=== PATIENT | male | born 1945 | race Caucasian/White ===

== ENCOUNTER 2023-09-07 07:50 | Observation (INO) | payer MEDICARE, MEDICAID ==
[~2023-09-07] VITALS: Ht 177.8 cm; Wt 86.6 kg
[2023-09-07] MEDS ORDERED: BISOPROLOL (08:04)
[2023-09-07] MEDS ORDERED: LISI5TAB11 PO (08:04)
[2023-09-07] MEDS ORDERED: vitaminD (08:04)
[2023-09-07] MEDS ORDERED: PRAS10TA2 PO (08:04)
[2023-09-07] MEDS ORDERED: GLIP10TA PO (08:04)
[2023-09-07] MEDS ORDERED: ELIQ5TAB PO (08:04)
[2023-09-07] MEDS ORDERED: URSO300C3 PO (08:09)
[2023-09-07 08:46] LABS: BASO # 0.1 10^3/uL (0.0-0.2); BASO % 0.7 % (0.0-1.0); EOS # 0.2 10^3/uL (0.0-0.5); EOS % 2.1 % (0.0-3.0); HEMATOCRIT 43.8 % (42.0-52.0); HEMOGLOBIN 14.4 g/dl (13.5-17.5); LYMPH % 13.3 % (24.0-44.0); MEAN CORPUSCULAR HEMOGLOBIN 30.8 pg (27.0-33.0); MEAN CORPUSCULAR HGB CONC 32.9 g/dl (32.0-36.5); MEAN CORPUSCULAR VOLUME 93.6 fl (80.0-96.0); MONO # 0.4 10^3/uL (0.0-0.8); MONO % 5.3 % (2.0-8.0); NEUTROPHILS % 78.2 % (36.0-66.0); PLATELET COUNT, AUTOMATED 168 10^3/uL (150-450); RED BLOOD COUNT 4.68 10^6/uL (4.30-6.10); WHITE BLOOD COUNT 7.6 10^3/uL (4.0-10.0)
[2023-09-07 09:08] LABS: LIPASE 24 U/L (12-53)
[2023-09-07 09:11] LABS: ALBUMIN 3.7 G/DL (3.2-5.2); ALKALINE PHOSPHATASE 120 U/L (46-116); ALT/SGPT 16 U/L (7.0-40); AST/SGOT 19 U/L (<34); BILIRUBIN,DIRECT 0.4 MG/DL (<0.4); BLOOD UREA NITROGEN 25 MG/DL (9-23); CALCIUM LEVEL 9.7 MG/DL (8.3-10.6); CARBON DIOXIDE LEVEL 26 MMOL/L (20-31); CHLORIDE LEVEL 103 MMOL/L (98-107); GLOMERULAR FILTRATION RATE > 60.0 (>35); GLUCOSE, FASTING 214 MG/DL (74-106); SODIUM LEVEL 139 MMOL/L (136-145); TOTAL PROTEIN 6.9 G/DL (5.7-8.2)
[2023-09-07 09:17] LABS: RSV AMPLIFICATION NEGATIVE (NEGATIVE)
[2023-09-07] MEDS ORDERED: ONDANSETRON 4MG 2ML VIAL IV ONE (09:20)
[2023-09-07] MEDS: fentaNYL 100 MCG/2 ML INJECTION IV PRN ×2 (09:28→10:11)
[2023-09-07] MEDS ORDERED: MORPHINE 4 MG/ML 1ML VIAL IV PRN (11:25)
[2023-09-07] MEDS ORDERED: MED REC IN PROGRESS XX SCH (11:30)
[2023-09-07] MEDS ORDERED: HYDROMORPHONE HCL 0.5 MG/ 0.5 ML SYRINGE IV PRN ×2 (11:35→13:40)
[2023-09-07] MEDS ORDERED: LR 1,000 ML IV SCH (12:00)
[2023-09-07] MEDS ORDERED: OLOP5DRO17 TOP (12:05)
[2023-09-07] MEDS ORDERED: SIMV-254 PO (12:05)
[2023-09-07] MEDS ORDERED: OMEP-173 PO (12:05)
[2023-09-07] MEDS ORDERED: BISO10TA14 PO (12:05)
[2023-09-07] MEDS ORDERED: VITA200012 PO (12:05)
[2023-09-07] MEDS: PIPERACILLIN/TAZOBACTAM SOD 4.5 GM in D5W MINI-BAG PLUS 50 ML IV SCH ×3 (12:12→23:22)
[2023-09-07] MEDS ORDERED: HOME MED LIST COMPLETE! XX SCH (12:15)
[2023-09-07 13:13] LABS: PROCALCITONIN <0.04 ng/ml
[2023-09-07 13:20] VITALS: BP 145/78; TEMP 97.7; O2SAT 98
[2023-09-07] MEDS ORDERED: ONDANSETRON 4MG 2ML VIAL IV PRN (13:40)
[2023-09-07 16:00] VITALS: BP 173/78; TEMP 98; O2SAT 94
[2023-09-07] MEDS: bisoproloL fumarate 10 MG TAB PO SCH (16:03)
[2023-09-07] MEDS: OMEPRAZOLE 20MG CAP PO SCH (16:03)
[2023-09-07] MEDS ORDERED: ACETAMINOPHEN *IV* 1,000 MG in IV 1 EA IV ONE (16:30)
[2023-09-07 18:00] VITALS: BP 162/74; O2SAT 96
[2023-09-07] MEDS: PRASUGREL 10 MG XX SCH (18:12)
[2023-09-07] MEDS ORDERED: NS 1,000 ML IV SCH (19:00)
[2023-09-07 20:00] VITALS: BP 140/63; TEMP 97.7; O2SAT 96
[2023-09-07 20:40] VITALS: BP 140/63
[2023-09-07] MEDS: ursodioL 300MG CAP PO SCH (20:41)
[2023-09-07] MEDS ORDERED: SIMVASTATIN 40 MG TAB PO SCH (21:00)
[2023-09-08] VITALS: BP 112/59; TEMP 98.7; O2SAT 96
[2023-09-08 04:00] VITALS: BP 124/58; TEMP 97.8; O2SAT 96
[2023-09-08 04:46] LABS: HEMATOCRIT 38.4 % (42.0-52.0); HEMOGLOBIN 12.8 g/dl (13.5-17.5); MEAN CORPUSCULAR HEMOGLOBIN 30.8 pg (27.0-33.0); MEAN CORPUSCULAR HGB CONC 33.3 g/dl (32.0-36.5); MEAN CORPUSCULAR VOLUME 92.5 fl (80.0-96.0); PLATELET COUNT, AUTOMATED 152 10^3/uL (150-450); RED BLOOD COUNT 4.15 10^6/uL (4.30-6.10); WHITE BLOOD COUNT 6.8 10^3/uL (4.0-10.0)
[2023-09-08] MEDS: PIPERACILLIN/TAZOBACTAM SOD 4.5 GM in D5W MINI-BAG PLUS 50 ML IV SCH ×2 (05:08→11:18)
[2023-09-08 05:20] LABS: ALBUMIN 2.9 G/DL (3.2-5.2); ALKALINE PHOSPHATASE 95 U/L (46-116); ALT/SGPT 14 U/L (7.0-40); AST/SGOT 15 U/L (<34); BILIRUBIN,DIRECT 0.7 MG/DL (<0.4); BILIRUBIN,TOTAL 1.6 MG/DL (0.3-1.2); BLOOD UREA NITROGEN 19 MG/DL (9-23); CALCIUM LEVEL 9.2 MG/DL (8.3-10.6); CARBON DIOXIDE LEVEL 28 MMOL/L (20-31); CHLORIDE LEVEL 106 MMOL/L (98-107); CREATININE FOR GFR 0.97 MG/DL (0.70-1.30); GLOMERULAR FILTRATION RATE > 60.0 (>35); GLUCOSE, FASTING 108 MG/DL (74-106); MAGNESIUM LEVEL 1.8 MG/DL (1.8-2.4); SODIUM LEVEL 142 MMOL/L (136-145); TOTAL PROTEIN 5.6 G/DL (5.7-8.2)
[2023-09-08 08:00] VITALS: BP 158/74; TEMP 97.6; O2SAT 95
[2023-09-08] MEDS: ursodioL 300MG CAP PO SCH (08:19)
[2023-09-08] MEDS: OMEPRAZOLE 20MG CAP PO SCH (08:19)
[2023-09-08] MEDS: PRASUGREL 10 MG XX SCH (08:20)
[2023-09-08] MEDS ORDERED: ENOXAPARIN 40MG/0.4ML SYRINGE (J1650 PER 10MG) SC SCH (09:00)
[2023-09-08] MEDS: bisoproloL fumarate 10 MG TAB PO SCH (09:17)
[2023-09-08 12:00] VITALS: BP 137/67; TEMP 97.9; O2SAT 96
[2023-09-08] MEDS ORDERED: HYDR-3715 PO (12:32)
== END 2023-09-08 14:57 | disposition home or self-care (01) ==
LOC: M ED 07:50 → M ED INP 11:35 → INTOOBSV 11:35 → ENRESERV 12:42 → M ICU 13:41
PROVIDERS: ADMIT Internal Medicine; ATTEND Internal Medicine
DX: K80.66 Calculus of gallbladder and bile duct with acute and chronic cholecystitis without obstruction (principal); R74.8 Abnormal levels of other serum enzymes; I48.91 Unspecified atrial fibrillation; I48.92 Unspecified atrial flutter; Z79.01 Long term (current) use of anticoagulants; Z95.0 Presence of cardiac pacemaker; I10 Essential (primary) hypertension; I25.10 Atherosclerotic heart disease of native coronary artery without angina pectoris; I49.5 Sick sinus syndrome; E78.5 Hyperlipidemia, unspecified; K21.9 Gastro-esophageal reflux disease without esophagitis; Z79.84 Long term (current) use of oral hypoglycemic drugs; Z79.899 Other long term (current) drug therapy; Z88.1 Allergy status to other antibiotic agents; Z88.8 Allergy status to other drugs, medicaments and biological substances
CPT/HCPCS: 36415; 76705; 80047; 80048; 80076; 83690; 83735; 84145; 85025; 85027; 87631; 93005; 96361; 96365; 96366; 96372; 96375; 96376; 99285; G0378; J0131; J1170; J1650; J2405; J2543; J3010